=== PATIENT | female | born 1940 | race Caucasian/White ===

== ENCOUNTER → 2016-10-20 | Outpatient (CLI) | payer MEDICARE ==
[~2016-10-20] MED LIST: ALDACTONE50 MG PO; ATORVASTATIN PO; CALTRATE-600 W600 MG PO; FISH OIL1 IU PO; LEXAPRO 10MG10 MG PO; LISINOPRIL20 MG PO; MVI; TIMOLOL OPHTHALMIC OU; XALATAN EYE DROPS OU
== END ==
LOC: MC.RAD 09:30
DX: N64.52 Nipple discharge (principal); R92.2 Inconclusive mammogram

== ENCOUNTER → 2017-09-03 | Outpatient (CLI) | payer MEDICARE | LOC: MC.RAD 08:54 | DX: N63.41 Unspecified lump in right breast, subareolar (principal) ==

== ENCOUNTER → 2017-12-24 | Outpatient (CLI) | payer MEDICARE | LOC: MC.RAD 10:58 | DX: Z12.31 Encounter for screening mammogram for malignant neoplasm of breast (principal) ==

== ENCOUNTER 2018-01-31 10:51 | Inpatient (IN) | payer MEDICARE ==
[~2018-01-31] VITALS: Ht 162.6 cm; Wt 79.5 kg
[~2018-01-31 10:51] MED LIST changes: +ASPIRIN 81M81 MG/TA2 PO; -ATORVASTATIN PO; -FISH OIL1 IU PO; +FLEXERIL5 MG PO; +LIPITOR20 MG PO; +OMEGA-3 1000 MG1 CAP PO; +TYLENOL 325MG325 MG PO; +ZEBETA10 MG PO
[2018-01-31 11:18] VITALS: BP 149/66; PULSE 71; TEMP 98.8
[2018-01-31] MEDS ORDERED: OMEGA-3 1000 MG1 CAP PO (12:10)
[2018-01-31] MEDS ORDERED: INDERAL 10MG10 MG PO (12:10)
[2018-01-31] MEDS ORDERED: MULTI VITAMINS1 TAB PO (12:10)
[2018-01-31] MEDS ORDERED: MASON NATURAL2000 IU PO (12:11)
[2018-01-31 14:29] LABS: BASO % 0.2 % (0.0-2.0); EOS % 0.1 % (0-4.0); GRAN # 12.2 (1.4-6.5); HEMATOCRIT 41.3 % (37.0-47.0); HEMOGLOBIN 14.4 g/dl (12.5-16.0); LYMPH # 0.8 (1.2-3.4); LYMPH % 5.5 % (20.0-51.0); MEAN CELL VOLUME 89 fl (80.0-100.0); MEAN CORPUSCULAR HEMOGLOBIN 31 pg (27.0-31.0); MEAN CORPUSCULAR HGB CONC 35 g/dl (33.0-37.0); MEAN PLATELET VOLUME 10.3 fl (7.4-10.4); MONO # 0.8 (0.1-0.6); MONO % 5.7 % (1.7-9.3); PLATELET COUNT 215 K/mm3 (130-400); RED BLOOD COUNT 4.66 M/mm3 (4.10-5.30); REDCELL DISTRIBUTION WIDTH-CV 12.6 % (11.5-14.5)
[2018-01-31 14:39] LABS: CALCIUM 9.9 mg/dL (8.4-10.2); CREATININE, serum 0.93 mg/dL (0.52-1.25); MAGNESIUM 1.9 mg/dL (1.6-2.3); POTASSIUM 4.4 mmol/L (3.4-5.0)
[2018-01-31 15:34] VITALS: BP 101/57; PULSE 57; TEMP 98.4
[2018-01-31 15:51] VITALS: BP 164/67; PULSE 69; TEMP 98.8
[2018-01-31 20:00] VITALS: BP 134/49; PULSE 71; TEMP 98.4
[2018-02-01 04:00] VITALS: BP 135/59; PULSE 76; TEMP 98.1
[2018-02-01 07:46] VITALS: BP 137/63; PULSE 75; TEMP 97.6
[2018-02-01 12:29] VITALS: BP 167/76; PULSE 70; TEMP 98.3
[2018-02-01 17:18] VITALS: BP 169/76; PULSE 73; TEMP 98.4
[2018-02-01 21:02] VITALS: BP 154/96; PULSE 79; TEMP 100; TEMP 98.6
[2018-02-02] VITALS (8 sets, daily range): BP systolic 100–197; BP diastolic 70–94; PULSE 70–82; TEMP 97.6–99.2
[2018-02-02 03:35] LABS: COLLECTION METHOD CATHETER
[2018-02-02 03:43] LABS: MUCOUS Present /lpf; PH 6 (5-8); SQUAMOUS EPITHELIAL None Seen /hpf; URINE APPEARANCE Hazy; URINE BACTERIA Rare /hpf; URINE BILIRUBIN Negative (NEGATIVE); URINE BLOOD 1+ (NEGATIVE); URINE COLOR Yellow; URINE GLUCOSE 1+ (NEGATIVE); URINE KETONE 1+ (NEGATIVE); URINE LEUKOCYTE ESTERASE Negative (NEGATIVE); URINE NITRATE Negative (NEGATIVE); URINE PROTEIN(semi-quant) 2+ (NEGATIVE); URINE RBC 0-2 /hpf; URINE UROBILINOGEN Negative (NEGATIVE)
[2018-02-02 23:43] LABS: COLLECTION METHOD CATHETER
[2018-02-03] VITALS (186 sets, daily range): BP systolic 153–194; BP diastolic 71–87; PULSE 72–93; TEMP 97.9–98.8; O2SAT 87–100
[2018-02-03 00:11] LABS: AMORPHOUS CRYSTAL Present /uL; BUDDING YEAST Present /hpf; MUCOUS Present /lpf; PH 6 (5-8); SQUAMOUS EPITHELIAL 0-2 /hpf; URINE APPEARANCE Cloudy; URINE BACTERIA Moderate /hpf; URINE BILIRUBIN Negative (NEGATIVE); URINE BLOOD 1+ (NEGATIVE); URINE CALCIUM OXALATE CRYSTAL Present /hpf; URINE COLOR Yellow; URINE GLUCOSE Negative (NEGATIVE); URINE KETONE Trace (NEGATIVE); URINE LEUKOCYTE ESTERASE Negative (NEGATIVE); URINE NITRATE Negative (NEGATIVE); URINE PROTEIN(semi-quant) 2+ (NEGATIVE); URINE UROBILINOGEN Negative (NEGATIVE)
[2018-02-03 06:33] LABS: HEMATOCRIT 42.4 % (37.0-47.0); HEMOGLOBIN 15.6 g/dl (12.5-16.0); MEAN CORPUSCULAR HEMOGLOBIN 31 pg (27.0-31.0); MEAN CORPUSCULAR HGB CONC 37 g/dl (33.0-37.0); MEAN PLATELET VOLUME 10.6 fl (7.4-10.4); PLATELET COUNT 311 K/mm3 (130-400); RED BLOOD COUNT 5.09 M/mm3 (4.10-5.30)
[2018-02-03 06:39] LABS: MEAN CELL VOLUME 83 fl (80.0-100.0)
[2018-02-03 06:56] LABS: CALCIUM 8.5 mg/dL (8.4-10.2); CREATININE, serum 0.68 mg/dL (0.52-1.25); MAGNESIUM 1.6 mg/dL (1.6-2.3); POTASSIUM 3.1 mmol/L (3.4-5.0)
[2018-02-03 07:08] LABS: BAND 10 % (0-10); LYMPHOCYTE 2 % (20.0-51.0); NEUTROPHILS 85 % (42.0-75.2)
[2018-02-03 07:09] LABS: PLATELET ESTIMATE NORMAL (NORMAL)
[2018-02-03 14:17] LABS: CSF APPEARANCE BLOODY; CSF COLOR RED; CSF RBC 89000 /mm3 (0-0)
[2018-02-03 14:18] LABS: CSF MONONUCLEAR 72 % (70-100); CSF POLYMORPHONUCLEAR 28 % (0-6)
[2018-02-03 16:37] LABS: CREATININE, serum 0.69 mg/dL (0.52-1.25); POTASSIUM 3.6 mmol/L (3.4-5.0)
== END 2018-02-03 17:27 | disposition short-term general hospital (02) | DRG 552 ==
LOC: MEDICAL 10:51 → ICU 02-03 13:01
PROVIDERS: Internal Medicine
PROC: 009U3ZX Drainage of Spinal Canal, Percutaneous Approach, Diagnostic (ICD-10-PCS; principal; 2018-02-03)
DX: M50.03 Cervical disc disorder with myelopathy, cervicothoracic region (principal); B37.49 Other urogenital candidiasis; E87.1 Hypo-osmolality and hyponatremia; G82.21 Paraplegia, complete; I10 Essential (primary) hypertension; I48.91 Unspecified atrial fibrillation; Z95.0 Presence of cardiac pacemaker; M51.26 Other intervertebral disc displacement, lumbar region; E87.6 Hypokalemia
CPT/HCPCS: OP; 99232-AI; 99239; G0378; G0379; G8978-GP; G8979-GP; G8985-GO; G8987-GO; J0696; J1170; J1650; J2405; J2930; J3475; J3480; J7030; J7131